=== PATIENT | female | born 1990 | race Caucasian/White ===

== ENCOUNTER → 2023-12-02 07:25 | Outpatient (REF) | payer BC, SELFPAY | LOC: PNTC 07:25 | PROVIDERS: ATTENDING PHYSICIAN Obstetrics & Gynecology | DX: O35.5XX0 Maternal care for (suspected) damage to fetus by drugs, not applicable or unspecified (principal) | CPT/HCPCS: 76816 ==

== ENCOUNTER → 2023-12-16 11:33 | Outpatient (REF) | payer BC, SELFPAY | LOC: RAD 11:33 | PROVIDERS: ATTENDING PHYSICIAN Family Medicine; FAMILY PHYSICIAN Family Medicine | DX: S59.902A Unspecified injury of left elbow, initial encounter (principal); Z3A.28 28 weeks gestation of pregnancy | CPT/HCPCS: 73080 ==

== ENCOUNTER 2024-03-15 10:03 | Inpatient (IN) | payer BC, SELFPAY ==
[2024-03-15 10:10] VITALS: BP 124/83
[2024-03-15 10:31] LABS: % Basophils 0.5 % (0-2); % Eosinophils 0.6 % (0-6); % Immature Granulocytes 0.4 % (0-0.5); % Lymphocytes 18.9 % (20.5-51.1); % Monocytes 6.4 % (1.7-9.3); % Neutrophils 73.2 % (42.2-75.2); Absolute Basophils 0.1 10^3/uL (0-0.2); Absolute Eosinophils 0.1 10^3/uL (0-0.7); Absolute Immature Granulocytes 0.1 10^3/uL (0-0.05); Absolute Lymphocytes 2.3 10^3/uL (1.2-3.4); Absolute Monocytes 0.8 10^3/uL (0.1-0.6); Hematocrit 35.5 % (37.0-47.0); Hemoglobin 12.3 g/dL (12.0-16.0); Mean Corp Hgb Conc. 34.6 g/dL (33.0-37.0); Mean Corpuscular Hgb 30.6 pg (27.0-31.0); Mean Corpuscular Volume 88.3 fL (81.0-99.0); Mean Platelet Volume 10.4 fL (7.4-10.4); Nucleated Red Blood Cells % 0 %; Platelet Count 237 10^3/uL (130-400); Red Blood Cell Count 4.02 10^6/uL (4.20-5.40); Red Cell Dist. Width 13.4 % (11.5-14.5); White Blood Cell Count 12.4 10^3/uL (4.8-10.8)
[2024-03-15] MEDS: PENICILLIN 110 UNITS IV (10:43)
[2024-03-15] MEDS: FENTANYL/BUPIVACAINE 100 EPIDURAL ×2 (11:26→18:58)
[2024-03-15] MEDS: SUBLIMAZE 100 MCG EPIDURAL (11:26)
[2024-03-15] MEDS: PENICILLIN 55 UNITS IV ×3 (14:36→22:29)
[2024-03-15] MEDS: LR 1000 IV (22:30)
[2024-03-16] MEDS: PITOCIN 30 UNITS/NSS 500 ML IV (00:04)
[2024-03-16] MEDS: TYLENOL 650 MG PO (02:38)
[2024-03-16] MEDS: MOTRIN 600 MG PO ×2 (02:39→16:09)
[2024-03-16] MEDS: PENICILLIN IV (05:48)
[2024-03-16] MEDS: LEXAPRO 5 MG PO (08:29)
[2024-03-16] MEDS: SENOKOT-S 1 TABLET PO (14:33)
[2024-03-17] MEDS: TYLENOL 650 MG PO ×3 (01:19→17:30)
[2024-03-17] MEDS: MOTRIN 600 MG PO ×3 (01:19→17:30)
[2024-03-17 05:25] LABS: Hematocrit 31.9 % (37.0-47.0); Hemoglobin 10.3 g/dL (12.0-16.0)
[2024-03-17] MEDS: FEOSOL 325 MG PO (09:21)
[2024-03-17] MEDS: LEXAPRO 5 MG PO (09:21)
[2024-03-17] MEDS: SENOKOT-S 1 TABLET PO (09:24)
[2024-03-18] MEDS: TYLENOL 650 MG PO (03:45)
[2024-03-18] MEDS: MOTRIN 600 MG PO (03:45)
[2024-03-18] MEDS: FEOSOL 325 MG PO (07:56)
[2024-03-18] MEDS: LEXAPRO 5 MG PO (07:56)
[2024-03-18] MEDS: SENOKOT-S 1 TABLET PO (07:56)
[2024-03-18 14:47] LABS: Syphilis/T. pallidum Ab Reflex Negative (Negative)
== END 2024-03-18 11:30 | disposition home or self-care (01) | DRG 807 ==
LOC: LDRP 10:03
PROVIDERS: ADMITTING PHYSICIAN Obstetrics & Gynecology; FAMILY PHYSICIAN Family Medicine
PROC: 10E0XZZ Delivery of Products of Conception, External Approach (ICD-10-PCS; 2024-03-16)
PROC: 0HQ9XZZ Repair Perineum Skin, External Approach (ICD-10-PCS; 2024-03-16)
DX: O48.0 Post-term pregnancy (principal); Z37.0 Single live birth; Z3A.40 40 weeks gestation of pregnancy; O99.824 Streptococcus B carrier state complicating childbirth; O77.0 Labor and delivery complicated by meconium in amniotic fluid; O76 Abnormality in fetal heart rate and rhythm complicating labor and delivery; O69.81X0 Labor and delivery complicated by cord around neck, without compression, not applicable or unspecified; O70.0 First degree perineal laceration during delivery; O99.344 Other mental disorders complicating childbirth; F32.A Depression, unspecified; F41.9 Anxiety disorder, unspecified
CPT/HCPCS: 88307; 36415; 85014; 85018; 85025; 86780; 86850; 86900; 86901

== ENCOUNTER 2024-07-06 13:05 | Outpatient (RCR) | payer BC, SELFPAY | END 2024-07-06 23:59 | disposition home or self-care (01) | LOC: RPT 13:05 | PROVIDERS: ATTENDING PHYSICIAN Obstetrics & Gynecology; FAMILY PHYSICIAN Family Medicine | DX: R10.2 Pelvic and perineal pain (principal); M62.89 Other specified disorders of muscle; N39.3 Stress incontinence (female) (male); Z73.6 Limitation of activities due to disability | CPT/HCPCS: 97110; 97163; 97530 ==

== ENCOUNTER 2024-08-09 13:02 | Outpatient (RCR) | payer BC, SELFPAY | END 2024-08-09 23:59 | disposition home or self-care (01) | LOC: RPT 13:02 | PROVIDERS: ATTENDING PHYSICIAN Obstetrics & Gynecology; FAMILY PHYSICIAN Family Medicine | DX: R10.2 Pelvic and perineal pain (principal); M62.89 Other specified disorders of muscle; N39.3 Stress incontinence (female) (male); Z73.6 Limitation of activities due to disability | CPT/HCPCS: 97110; 97112; 97530 ==

== ENCOUNTER 2024-08-30 13:02 | Outpatient (RCR) | payer BC, SELFPAY | END 2024-08-30 23:59 | disposition home or self-care (01) | LOC: RPT 13:02 | PROVIDERS: ATTENDING PHYSICIAN Obstetrics & Gynecology; FAMILY PHYSICIAN Family Medicine | DX: R10.2 Pelvic and perineal pain (principal); M62.89 Other specified disorders of muscle; N39.3 Stress incontinence (female) (male); Z73.6 Limitation of activities due to disability | CPT/HCPCS: 97110; 97530 ==